=== PATIENT | female | born 1980 | race Caucasian/White ===

== ENCOUNTER 2018-03-09 00:24 | Inpatient (IN) | payer BC ==
--- NOTE | 2018-03-09 01:45 | HP ---
General Information - General Information Maternal Age: 38 Grav: 1 Para: 0 SAB: 0 IEA: 0 Estimated Due Date: 03/05/18 Determined By: LMP Maternal Blood Type and Rh: O Positive - Results this Serology/RPR Result: Non-Reactive Rubella Result: Immune HBsAg Result: Negative HIV Result: Negative GBS Culture Result: Negative Past Medical History Delivery History: See Records - Primiparous Pertinent Past Medical History: See Records - palpitations, PVCs, migraines Pertinent Past Surgical History: None Pertinent Family History: Non-Contributory - Antepartal Records Antepartal Records: Reviewed, Uncomplicated - age 38 at delivery Review of Systems Constitutional: Comfortable CV Complaint: No Respiratory: Shortness of Breath: No Gastrointestinal: No Nausea/Vomiting, Normal Bowel Movement Genitourinary: No Dysuria, No Bleeding, No Leaking Fluid Musculoskeletal: No Epigastric Pain, Contractions Neurological: No Headache, No Visual Changes Movement: Normal Exam Allergies/Adverse Reactions: Allergies No Known Allergies Allergy (Verified 03/09/18 00:48) T-97.5, P-85, R-18, BP-124/61, O2- 100% - Measurements Height: 5 ft 7 in Weight: 88.451 kg Weight in lbs: [id number] Body Mass Index (BMI): 30.5 Pre- Weight: 79.379 kg Weight Gained This : 20 lbs and 0 ozs - Exam Breast: Breast Exam Deferred CVA: No CVA Tenderness Extremities: No Edema Heart: Normal Rhythm/Heart Sounds HEENT: No Significant Findings Lungs: Clear Bilaterally Rectal: Rectal Exam Deferred Reflexes: DTR 2+ Thyroid: No Thyromegaly - Abdominal Exam Abdomen Exam: Non-Tender, Fundal Height Consistent with Dates - Ultrasound/Biophysical Profile Ultrasound Status: Not Done Targeted Exam Findings See L&D Outpatient Visit Provider Note for Findings: N/A Estimated Weight: 7.5# Cervical Exam: 3cm Effacement: 80% Station: -1 Presenting Part: Vertex Membrane Status: Intact Bleeding/Discharge: None EFM Findings - External Monitor Findings Baseline Heart Rate: 120 External Monitor Findings: Accelerations Present, No Pattern of Variable or Late Decelerations, Variability Moderate, Baseline Stable Contractions: Regular Contraction Frequency: 4-5" Assessment/Plan - Assessment 38 year old at 40 4/7 weeks gestation in early active labor with intact membranes, no evidence of acidemia - Obstetrical Risk Factors Obstetrical Risk Factors: Post-Dates - Plan Plan: Admit - Anticipate Vaginal Delivery - Date/Time of Admission Date of Admission: 03/09/18 Time of Admission: 01:25
[2018-03-09 16:52] LABS: ABS Basophils 0.1 10^3/ul (0-0.2); ABS Eosinophils 0 10^3/ul (0-0.6); ABS Lymphocytes 1.6 10^3/ul (1.0-4.8); ABS Monocytes 0.6 10^3/ul (0-0.8); ABS Neutrophils 9.2 10^3/ul (1.5-7.7); ABS Nucleated RBC 0 10^3/ul; Eosinophil % 0.1 % (0-6); Hematocrit 35 % (35-47); Lymphocyte % 13.7 % (25-47); Mean Corpuscular HGB Conc 34 g/dl (31-36); Mean Corpuscular Hemoglobin 32 pg (27-31); Mean Corpuscular Volume 94 fL (80-97); Mean Platelet Volume 9.5 um3 (7.4-10.4); Nucleated Red Blood Cells % 0; Platelet Count 169 10^3/ul (150-450); Red Blood Count 3.78 10^6/ul (4.00-5.40); Red Cell Distribution Width 14 % (10.5-15); White Blood Count 11.5 10^3/ul (3.5-10.8)
[2018-03-09] MEDS ORDERED: OBEPIDURAL* 250 ML EPIDURAL ONE (17:00)
[2018-03-09] MEDS ORDERED: EPHEDrine (Pressors)* 50 MG/ML VIAL ONE (17:30)
[2018-03-09] MEDS ORDERED: EPHEDrine (Pressors)* 50 MG/ML VIAL IV PUSH PRN ×2 (17:45)
[2018-03-09] MEDS ORDERED: Sodium Citrate/Citric Acid* 15 ML UDC PO PRN (17:45)
[2018-03-09] MEDS ORDERED: Famotidine TAB* 20 MG PO PRN (17:45)
[2018-03-09] MEDS ORDERED: OBEPIDURAL* 250 ML EPIDURAL SCH (18:00)
[2018-03-09] MEDS ORDERED: Oxytocin in LR* 20 UNITS/1,000 ML BAG IVPB SCH (19:00)
[2018-03-09] MEDS ORDERED: Oxytocin in LR* 20 UNITS/1,000 ML BAG IVPB ONE (19:15)
[2018-03-10] MEDS ORDERED: Glycerin ADULT SUPP PR PRN (02:33)
[2018-03-10] MEDS ORDERED: Witch Hazel PAD* JAR TOPICAL PRN (02:33)
[2018-03-10] MEDS ORDERED: Dibucaine 1% 28.35 GM TUBE PR PRN (02:33)
--- NOTE | 2018-03-10 03:34 | PROCNOTE ---
[facility] OB: Delivery Note - Delivery A Date of : 03/10/18 Time of : 01:49 Score 1 Minute: 9 Score 5 Minutes: 9 Gestational Age in Weeks and Days at Delivery: 40 Weeks and 5 Days Delivery Method: Spontaneous Vaginal Labor: Spontaneous Did Patient attempt ?: N/A, No Previous Amniotic Fluid: Clear Estimated Blood Loss: 300 Anesthesia/Analgesia: CEI for Labor Delivered By: Yesenia Bazzi - Nursery Level of Nursery: Regular/Bedside - Perineum Perineal Injury: Periurethral Laceration - labial, Perineal Laceration, 1st Degree Perineal Injury Comment: Labial/periurethral hemostatic, not repaired Perineal Repair: By Delivering Practioner - Events Delivery Events of Note: Pitocin During Labor - Additional Delivery Notes Additional Delivery Notes: Admitted in early labor with slow progression. Patient opted for epidural with steady progression to complete without urge to push. LOL 8'18", pushed 19 min. FHT with deep decelerations at complete dilation, partially resolved with discontinuation of pitocin, initiation of O2 and knee/chest position. Moved to side lying for pushing then to hands and knees. Baby born OA to GLADYS in hands/ knees @ 0149. Shoulders followed smoothly with maternal efforts. Baby passed through mother's legs then mother turned to recline with baby on abdomen. Apgars 9,9. Cord noted to be slightly short. Cord doubly clamped and cut by mother of baby once pulsations ceased, >5 minutes. Placenta delivered with gentle cord traction @ 0203. Noted to have 3VC, some calcifications. Fundus firm to massage. EBL 300ml. Baby at breast to initiate . Mother and baby stable.
[2018-03-10] MEDS: Ibuprofen TAB* 600 MG PO PRN ×3 (04:44→17:01)
[2018-03-10] MEDS: Docusate CAP* 100 MG PO SCH ×3 (08:50→21:06)
[2018-03-10] MEDS: Acetaminophen TAB* 325 MG PO PRN ×2 (09:24→14:05)
[2018-03-11] MEDS: Ibuprofen TAB* 600 MG PO PRN ×2 (00:45→07:46)
[2018-03-11 06:30] LABS: ABS Basophils 0.1 10^3/ul (0-0.2); ABS Eosinophils 0.1 10^3/ul (0-0.6); ABS Lymphocytes 2.3 10^3/ul (1.0-4.8); ABS Monocytes 0.7 10^3/ul (0-0.8); ABS Neutrophils 5.7 10^3/ul (1.5-7.7); ABS Nucleated RBC 0 10^3/ul; Eosinophil % 1.2 % (0-6); Hematocrit 29 % (35-47); Hemoglobin 9.9 g/dl (12.0-16.0); Lymphocyte % 25.4 % (25-47); Mean Corpuscular HGB Conc 34 g/dl (31-36); Mean Corpuscular Hemoglobin 32 pg (27-31); Mean Corpuscular Volume 95 fL (80-97); Mean Platelet Volume 9.3 um3 (7.4-10.4); Nucleated Red Blood Cells % 0; Platelet Count 133 10^3/ul (150-450); Red Blood Count 3.11 10^6/ul (4.00-5.40); Red Cell Distribution Width 14 % (10.5-15); White Blood Count 8.9 10^3/ul (3.5-10.8)
[2018-03-11] MEDS: Docusate CAP* 100 MG PO SCH (07:47)
[2018-03-11] MEDS ORDERED: Ferrous Gluconate TAB* 324 MG TAB PO SCH (09:00)
--- NOTE | 2018-03-11 10:02 | PTEDU ---
Patient Name: MICK MORELAND MICK MORELAND selected video: Follow Me Mum: [facility] to view on 03/11/2018 at 10:01:42 AM from [id number]
[2018-03-11 10:55] VITALS: BP 116/66
== END 2018-03-11 13:09 | disposition home or self-care (01) | DRG 560 ==
LOC: MCHOBOUT 00:24 → MCHOB 01:25
PROVIDERS: ADMIT Midwife; ATTEND Midwife
PROC: 10E0XZZ Delivery of Products of Conception, External Approach (ICD-10-PCS; principal; 2018-03-10)
PROC: 10907ZC Drainage of Amniotic Fluid, Therapeutic from Products of Conception, Via Natural or Artificial Opening (ICD-10-PCS; 2018-03-10)
PROC: 0HQ9XZZ Repair Perineum Skin, External Approach (ICD-10-PCS; 2018-03-10)
DX: O48.0 Post-term pregnancy (principal); Z37.0 Single live birth; O70.0 First degree perineal laceration during delivery; O90.81 Anemia of the puerperium; D64.9 Anemia, unspecified; Z3A.40 40 weeks gestation of pregnancy
CPT/HCPCS: 36415; 85025; 86850; 86900; 86901; A9270-GY